=== PATIENT | female | born 1985 | race American Indian/Alaskan Native ===

== ENCOUNTER 2016-11-16 19:41 | Emergency (ER) | payer SELFPAY ==
[2016-11-16 23:18] VITALS: BP 150/90
[2016-11-17] MEDS ORDERED: NORCO 5/325 PO ONE (00:11)
[2016-11-17] MEDS ORDERED: CLEOCIN PO ONE (00:11)
--- NOTE | 2016-11-17 00:15 | Emergency Department Report ---
ED ENT HPI - General Chief complaint: Dental/Oral Stated complaint: ABCESS Time Seen by Provider: 11/16/16 23:22 Source: patient, family Mode of arrival: Ambulatory Limitations: No Limitations - History of Present Illness Initial comments: 31-year-old female presents with to 3 days of left lower toothache and mild swelling in her gums. States some pus was oozing out near her gums. Denies fever or chills speaking in full sentences no trismus or drooling noted. Denies fevers chills or neck pain. Some mild visible facial swelling. Patient states she plans on seeing a dentist this week. MD complaint: tooth pain Onset/Timin -: days(s) Location: tooth # (21) Severity: moderate Severity scale (0 -10): 5 Quality: aching Worsens with: eating Context- Dental: history of dental caries, poor dental care Associated Symptoms: gum swelling, toothache - Related Data Previous Rx's Medication Instructions Recorded Last Taken Type Ibuprofen [Motrin 800 MG tab] 800 mg PO Q8HR PRN #30 tablet 01/06/16 Unknown Rx Lidocain2.5%/Prilocai2.5% [Emla] 5 gm TP 1XW #1 tube 01/06/16 Unknown Rx oxyCODONE /ACETAMINOPHEN [Percocet 1 - 2 tab PO Q4HR PRN #30 tab 01/06/16 Unknown Rx 5/325 mg] Acetaminophen/Codeine [Tylenol 1 tab PO Q6H PRN #14 tab 11/17/16 Unknown Rx /Codeine # 3 tab] Benzocaine [Orajel Liquid 20%] 1 ml MM Q6HR PRN #1 bottle 11/17/16 Unknown Rx Chlorhexidine Mouthwash [Peridex] 15 ml MM BID #1 bottle 11/17/16 Unknown Rx Clindamycin [Clindamycin CAP] 300 mg PO Q6H #28 capsule 11/17/16 Unknown Rx Ibuprofen [Motrin] 800 mg PO Q8HR PRN #30 tablet 11/17/16 Unknown Rx Allergies Allergy/AdvReac Type Severity Reaction Status Date / Time No Known Allergies Allergy Unverified 01/06/16 01:55 EST ED Dental HPI - General Chief complaint: Dental/Oral Stated complaint: ABCESS Time Seen by Provider: 11/16/16 23:22 Source: patient, family Mode of arrival: Ambulatory Limitations: No Limitations - Related Data Previous Rx's Medication Instructions Recorded Last Taken Type Ibuprofen [Motrin 800 MG tab] 800 mg PO Q8HR PRN #30 tablet 01/06/16 Unknown Rx Lidocain2.5%/Prilocai2.5% [Emla] 5 gm TP 1XW #1 tube 01/06/16 Unknown Rx oxyCODONE /ACETAMINOPHEN [Percocet 1 - 2 tab PO Q4HR PRN #30 tab 01/06/16 Unknown Rx 5/325 mg] Acetaminophen/Codeine [Tylenol 1 tab PO Q6H PRN #14 tab 11/17/16 Unknown Rx /Codeine # 3 tab] Benzocaine [Orajel Liquid 20%] 1 ml MM Q6HR PRN #1 bottle 11/17/16 Unknown Rx Chlorhexidine Mouthwash [Peridex] 15 ml MM BID #1 bottle 11/17/16 Unknown Rx Clindamycin [Clindamycin CAP] 300 mg PO Q6H #28 capsule 11/17/16 Unknown Rx Ibuprofen [Motrin] 800 mg PO Q8HR PRN #30 tablet 11/17/16 Unknown Rx Allergies Allergy/AdvReac Type Severity Reaction Status Date / Time No Known Allergies Allergy Unverified 01/06/16 01:55 EST ED Review of Systems ROS: Stated complaint: ABCESS Other details as noted in HPI Constitutional: denies: chills, fever Eyes: denies: eye pain, eye discharge, vision change ENT: dental pain. denies: ear pain, throat pain Respiratory: denies: cough, shortness of breath, wheezing Cardiovascular: denies: chest pain, palpitations Endocrine: no symptoms reported Gastrointestinal: denies: abdominal pain, nausea, diarrhea Genitourinary: denies: urgency, dysuria, discharge Musculoskeletal: denies: back pain, joint swelling, arthralgia Skin: denies: rash, lesions Neurological: denies: headache, weakness, paresthesias Psychiatric: denies: anxiety, depression Hematological/Lymphatic: denies: easy bleeding, easy bruising ED Past Medical Hx - Past Medical History Previous Medical History?: No Hx Congestive Heart Failure: No Hx Diabetes: No Hx Asthma: No Hx COPD: No - Surgical History Past Surgical History?: Yes Additional Surgical History: c [id number] - Social History Smoking Status: Former Smoker Substance Use Type: Alcohol - Medications Home Medications: Home Medications Medication Instructions Recorded Confirmed Last Taken Type Ibuprofen [Motrin 800 MG tab] 800 mg PO Q8HR PRN #30 tablet 01/06/16 Unknown Rx Lidocain2.5%/Prilocai2.5% [Emla] 5 gm TP 1XW #1 tube 01/06/16 Unknown Rx oxyCODONE /ACETAMINOPHEN [Percocet 1 - 2 tab PO Q4HR PRN #30 tab 01/06/16 Unknown Rx 5/325 mg] Acetaminophen/Codeine [Tylenol 1 tab PO Q6H PRN #14 tab 11/17/16 Unknown Rx /Codeine # 3 tab] Benzocaine [Orajel Liquid 20%] 1 ml MM Q6HR PRN #1 bottle 11/17/16 Unknown Rx Chlorhexidine Mouthwash [Peridex] 15 ml MM BID #1 bottle 11/17/16 Unknown Rx Clindamycin [Clindamycin CAP] 300 mg PO Q6H #28 capsule 11/17/16 Unknown Rx Ibuprofen [Motrin] 800 mg PO Q8HR PRN #30 tablet 11/17/16 Unknown Rx ED Physical Exam - General Limitations: No Limitations General appearance: alert, in no apparent distress - Head Head exam: Present: atraumatic, normocephalic - Eye Eye exam: Present: normal appearance, PERRL, EOMI - ENT ENT exam: Present: mucous membranes moist - Expanded ENT Exam Expanded Teeth exam: Present: dental caries, dental tenderness # (21), gingival enlargement (tooth 21) 1 - Dental Tenderness (abscess here) Throat exam: Positive: normal inspection - Neck Neck exam: Present: normal inspection, full ROM - Respiratory Respiratory exam: Present: normal lung sounds bilaterally. Absent: respiratory distress - Cardiovascular Cardiovascular Exam: Present: regular rate, normal rhythm. Absent: systolic murmur, diastolic murmur, rubs, gallop - GI/Abdominal GI/Abdominal exam: Present: soft, normal bowel sounds - Extremities Exam Extremities exam: Present: normal inspection - Back Exam Back exam: Present: normal inspection - Neurological Exam Neurological exam: Present: alert, oriented X3 - Psychiatric Psychiatric exam: Present: normal affect, normal mood - Skin Skin exam: Present: warm, dry, intact, normal color. Absent: rash ED Course Vital Signs 11/16/16 11/16/16 11/17/16 20:21 23:17 00:32 Temperature 98.6 F 99 F Pulse Rate 74 61 Respiratory 18 18 18 Rate Blood Pressure 137/83 Blood Pressure 150/90 [Right] O2 Sat by Pulse 99 100 Oximetry ED Medical Decision Making - Medical Decision Making A/P: dental cavities, toothache, dental abscess 1- Motrin when necessary, clindamycin, Orajel when necessary, Peridex mouthwash daily basis, short course codeine when necessary 2- I provided patient with information for multiple dental clinics to follow up and stressed the importance of dental follow-up as he has multiple cavities that require dental fixation or instrumentation 3- no clinical signs of Hill's angina, no induration or cellulitis of floor of mouth or tongue 4- patient able to tolerate by mouth before discharge 5- n Advised patient that if she does not take antibiotics with follow-up with a dentist as soon as possible that a can result in potentially serious or dangerous infection to develop in jaw or face. Patient states that he understood these instructions. I advised patient to return to the ED for any persistent unrelenting nausea or vomiting fever or chills or headaches. Critical care attestation.: If time is entered above; I have spent that time in minutes in the direct care of this critically ill patient, excluding procedure time. ED Disposition Clinical Impression: Dental abscess, Toothache Disposition: TO HOME OR SELFCARE Is pt being admited?: No Does the pt Need Aspirin: No Condition: Stable Instructions: Dental Abscess (ED), Toothache (ED) Prescriptions: Acetaminophen/Codeine [Tylenol /Codeine # 3 tab] 1 tab PO Q6H PRN #14 tab PRN Reason: Toothache Benzocaine [Orajel Liquid 20%] 1 ml MM Q6HR PRN #1 bottle PRN Reason: Toothache Chlorhexidine Mouthwash [Peridex] 15 ml MM BID #1 bottle Clindamycin [Clindamycin CAP] 300 mg PO Q6H #28 capsule Ibuprofen [Motrin] 800 mg PO Q8HR PRN #30 tablet PRN Reason: Pain Referrals: [facility] [Outside] - 3-5 Days [facility] [Outside] - 3-5 Days Forms: Accompanied Note, Work/School Release Form(ED) Time of Disposition: 00:12
== END 2016-11-17 00:34 | disposition home or self-care (01) ==
LOC: ED 19:41
DX: K04.7 Periapical abscess without sinus (principal); Z87.891 Personal history of nicotine dependence
CPT/HCPCS: 99282